=== PATIENT | female | born 1995 | race Asian ===

== ENCOUNTER 2017-10-10 19:32 | Emergency (ER) | payer MEDICAID ==
[2017-10-10 21:32] VITALS: BP 98/75
== END 2017-10-10 21:32 | disposition home or self-care (01) ==
LOC: ED 19:32
DX: S00.532A Contusion of oral cavity, initial encounter (principal); S00.83XA Contusion of other part of head, initial encounter; W17.89XA Other fall from one level to another, initial encounter; Y93.89 Activity, other specified; Y99.8 Other external cause status; Y92.89 Other specified places as the place of occurrence of the external cause